=== PATIENT | female | born 1945 | race Caucasian/White ===

== ENCOUNTER 2017-11-15 01:01 | Emergency (ER) | payer MEDICARE, OTHER ==
[~2017-11-15] VITALS: Ht 177.8 cm; Wt 82.0 kg
[2017-11-15] MEDS ORDERED: ATORVASTATIN PO (01:53)
[2017-11-15] MEDS ORDERED: OXYC10TA47 PO (01:53)
[2017-11-15] MEDS ORDERED: IMURAN PO (01:53)
[2017-11-15] MEDS ORDERED: OXYC10TA6 PO (01:53)
[2017-11-15] MEDS ORDERED: METOPROLOL PO (01:53)
[2017-11-15] MEDS ORDERED: HYDROcodone/APAP 5/325 TABLET ONE (02:39)
[2017-11-15 02:44] VITALS: BP 141/75
[2017-11-15] MEDS ORDERED: HYDROcodone/APAP 5/325 TABLET PO ONE (03:00)
== END 2017-11-15 03:36 | disposition home or self-care (01) ==
LOC: ED 03:30
DX: S79.912A Unspecified injury of left hip, initial encounter (principal); G89.11 Acute pain due to trauma; M79.605 Pain in left leg; M06.9 Rheumatoid arthritis, unspecified; W01.0XXA Fall on same level from slipping, tripping and stumbling without subsequent striking against object, initial encounter; Y93.89 Activity, other specified; Y92.481 Parking lot as the place of occurrence of the external cause; Y99.8 Other external cause status
CPT/HCPCS: 99284